=== PATIENT | male | born 1960 | race Caucasian/White ===

== ENCOUNTER 2020-06-08 01:03 | Outpatient (CLI) | payer BC, SELFPAY ==
[2020-06-08 13:20] LABS: Hemoglobin A1C 5.6 % (<5.7)
== END 2020-06-08 01:04 | disposition home or self-care (01) ==
PROVIDERS: PCP Specialist; Visit Provider Family Medicine
DX: E74.39 Other disorders of intestinal carbohydrate absorption (principal); R97.20 Elevated prostate specific antigen [PSA]
CPT/HCPCS: 36415; 83036; 84154

== ENCOUNTER 2020-10-02 10:51 | Outpatient (REF) | payer BC, SELFPAY ==
[2020-10-04 12:30] LABS: COVID-19 RT-PCR UVMMC Result Negative (Negative)
== END 2020-10-02 10:52 | disposition home or self-care (01) ==
LOC: NCHCN 10:51
PROVIDERS: PCP Specialist; Visit Provider Internal Medicine
DX: Z20.822 Contact with and (suspected) exposure to COVID-19 (principal)
CPT/HCPCS: U0003

== ENCOUNTER 2020-12-17 02:46 | Outpatient (CLI) | payer BC, SELFPAY ==
[2020-12-17 13:55] LABS: Hemoglobin A1C 5.7 % (<5.7)
[2020-12-19 12:17] LABS: Free PSA/PSA Ratio 0.17 ratio
== END 2020-12-17 02:47 | disposition home or self-care (01) ==
PROVIDERS: PCP Specialist; Visit Provider Family Medicine
DX: E74.39 Other disorders of intestinal carbohydrate absorption (principal); R97.20 Elevated prostate specific antigen [PSA]
CPT/HCPCS: 36415; 83036; 84154

== ENCOUNTER 2021-04-10 16:17 | Outpatient (REF) | payer BC, SELFPAY ==
[2021-04-10 23:13] LABS: PSA, Diagnostic 0.5 ng/mL (0.0-4.5)
== END 2021-04-10 16:18 | disposition home or self-care (01) ==
LOC: LBN 16:17
PROVIDERS: PCP Family Medicine; Visit Provider Nurse Practitioner Gerontology
DX: R97.20 Elevated prostate specific antigen [PSA] (principal)
CPT/HCPCS: 84153

== ENCOUNTER 2021-07-04 01:57 | Outpatient (CLI) | payer BC, SELFPAY ==
[2021-07-05 16:54] LABS: Free PSA/PSA Ratio 0.14 ratio
== END 2021-07-04 01:58 | disposition home or self-care (01) ==
LOC: LBO 01:57
PROVIDERS: PCP Family Medicine; Visit Provider Nurse Practitioner Gerontology
DX: R97.20 Elevated prostate specific antigen [PSA] (principal); N40.1 Benign prostatic hyperplasia with lower urinary tract symptoms; N13.8 Other obstructive and reflux uropathy
CPT/HCPCS: 36415; 84154

== ENCOUNTER 2021-12-14 11:45 | Emergency (ER) | payer BC, SELFPAY ==
[2021-12-14 11:55] VITALS: BP 118/64; PULSE 51; RESP 18; TEMP 36.8; O2SAT 100
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
[2021-12-14] MEDS: Lidocaine 5% Patch 1 PATCH TP (14:06)
== END 2021-12-14 16:34 | disposition home or self-care (01) ==
PROVIDERS: Emergency Provider Physician Assistant; PCP Family Medicine
DX: S22.32XA Fracture of one rib, left side, initial encounter for closed fracture (principal); W01.0XXA Fall on same level from slipping, tripping and stumbling without subsequent striking against object, initial encounter; Y93.55 Activity, bike riding
CPT/HCPCS: 99283; 71046; 99284

== ENCOUNTER 2022-11-04 02:37 | Outpatient (CLI) | payer BC, SELFPAY ==
[2022-11-04 20:14] LABS: PSA, Screening 5.8 ng/mL (<=4.5)
== END 2022-11-04 02:38 | disposition home or self-care (01) ==
PROVIDERS: PCP Family Medicine; Visit Provider Nurse Practitioner Gerontology
DX: N40.1 Benign prostatic hyperplasia with lower urinary tract symptoms (principal); R97.20 Elevated prostate specific antigen [PSA]; N13.8 Other obstructive and reflux uropathy; Z12.5 Encounter for screening for malignant neoplasm of prostate
CPT/HCPCS: 36415; 84153